=== PATIENT | female | born 1985 | race Caucasian/White ===

== ENCOUNTER 2016-10-31 10:22 | Inpatient (IN) | payer OTHER, SELFPAY ==
[~2016-10-31] VITALS: Ht 170.2 cm; Wt 85.7 kg
[2016-10-31] MEDS ORDERED: LIDOCAINE PF 1% 30ML(POUR BTL) INJ ONE (18:00)
[2016-10-31] MEDS ORDERED: MINERAL OIL 30 ML UDC ONE (18:00)
[2016-10-31] MEDS ORDERED: OXYTOCIN/NORMAL SALINE 1,000 ML IV SCH (18:19)
[2016-10-31] MEDS ORDERED: LR 1,000 ML IV SCH (18:19)
[2016-10-31] MEDS ORDERED: TERBUTALINE SULFATE 1 MG/ML VIAL SUBCUT ONE (18:30)
[2016-10-31] MEDS ORDERED: CEFAZOLIN 2 GM IVPB PREMIX 50 ML IV ONE (18:45)
[2016-10-31] MEDS ORDERED: CEFAZOLIN 1 GM IVPB PREMIX 50 ML IV ONE (18:45)
[2016-10-31 18:53] VITALS: BP_SYST 117
[2016-10-31 19:04] LABS: BASOPHILS # (AUTO) 0.1 K/uL (0.0-0.2); BASOPHILS % (AUTO) 0.7 % (0.0-2.0); EOSINOPHILS # (AUTO) 0.1 K/uL (0.0-0.4); EOSINOPHILS % (AUTO) 0.5 % (0.0-4.0); HEMATOCRIT 37.2 % (36-48); HEMOGLOBIN 12.8 g/dL (12.0-16.0); LYMPHOCYTES # (AUTO) 2.6 K/uL (1.0-5.5); LYMPHOCYTES % (AUTO) 20.7 % (20.5-51.5); MEAN CORPUSCULAR HEMOGLOBIN 31 pg (27-31); MEAN CORPUSCULAR HGB CONC 35 % (32-36); MEAN CORPUSCULAR VOLUME 89 fL (79.0-98.0); MONOCYTES % (AUTO) 8.1 % (1.7-9.3); PLATELET COUNT (AUTO) 263 K/uL (130-430); RED BLOOD CELL COUNT(AUTO) 4.19 MIL/uL (4.2-6.2); RED CELL DISTRIBUTION WIDTH 12.8 % (9.0-15.0); WHITE BLOOD COUNT (AUTO) 12.8 K/uL (4.8-10.8)
[2016-11-01] MEDS: NALBUPHINE HCL 10 MG/ML AMP IVP PRN ×2 (00:11→06:13)
[2016-11-01] MEDS ORDERED: CEFAZOLIN 1 GM IVPB PREMIX 50 ML IV SCH ×2 (06:00)
[2016-11-01] MEDS ORDERED: FENT2mCg/mL-ROPIVA0.2%/NS EPID 150 ML EP SCH (07:56)
[2016-11-01] MEDS ORDERED: FENT2mCg/mL-ROPIVA0.2%/NS EPID 150 ML EP ONE (07:56)
[2016-11-01] MEDS ORDERED: OXYTOCIN/NORMAL SALINE 1,000 ML IV ONE (13:38)
[2016-11-01] MEDS ORDERED: SENNOSIDES/DOCUSATE SODIUM 1 TAB TABLET(SENOKOT-S) PO PRN (13:45)
[2016-11-01] MEDS ORDERED: ACETAMINOPHEN 325 MG TABLET PO PRN (13:45)
[2016-11-01] MEDS ORDERED: ANUSOL 1 EA SUPP.RECT (PREPARATION H) RC PRN (13:45)
[2016-11-01] MEDS ORDERED: OXYCODONE/ACETAMINOPHEN 5-325 TABLET PO PRN ×2 (13:45)
[2016-11-01] MEDS ORDERED: DERMOPLAST SPRAY TP PRN (13:45)
[2016-11-01] MEDS ORDERED: LANOLIN 7 GM OINT. TP PRN (13:45)
[2016-11-01] MEDS ORDERED: METHYLERGONOVINE MALEATE 0.2 MG TABLET PO PRN (13:45)
[2016-11-01] MEDS ORDERED: HYDROCORTISONE 0.5%, 28.35 GM TOPICAL CREAM TP PRN (13:45)
[2016-11-01] MEDS ORDERED: GLYCERIN/WITCH HAZEL (TUCKS PADS) TP PRN (13:45)
[2016-11-01] MEDS: IBUPROFEN 600 MG TABLET PO SCH ×2 (17:46→23:40)
[2016-11-01] MEDS: DOCUSATE SODIUM 100 MG CAPSULE PO PRN (23:40)
[2016-11-02] MEDS: IBUPROFEN 600 MG TABLET PO SCH ×3 (06:07→18:00)
[2016-11-02 07:01] LABS: HEMATOCRIT 29.3 % (36-48); HEMOGLOBIN 9.9 g/dL (12.0-16.0)
[2016-11-02] MEDS: DOCUSATE SODIUM 100 MG CAPSULE PO PRN (18:00)
[2016-11-03] MEDS: IBUPROFEN 600 MG TABLET PO SCH ×3 (00:51→13:36)
[2016-11-03] MEDS ORDERED: DIPH-TET-PERTUS Vaccine 0.5 ML VIAL/Tdap (ADACEL) I.M. PRN (10:45)
[2016-11-03] MEDS: DOCUSATE SODIUM 100 MG CAPSULE PO PRN (13:35)
== END 2016-11-03 15:30 | disposition home or self-care (01) | DRG 775 ==
LOC: SPU 17:00
PROVIDERS: ADMIT Specialist; ATTEND Specialist
PROC: 10D07Z6 Extraction of Products of Conception, Vacuum, Via Natural or Artificial Opening (ICD-10-PCS; principal; 2016-10-31)
PROC: 3E0S3CZ (ICD-10-PCS; 2016-10-31)
PROC: 00HU33Z Insertion of Infusion Device into Spinal Canal, Percutaneous Approach (ICD-10-PCS; 2016-10-31)
PROC: 0W8NXZZ Division of Female Perineum, External Approach (ICD-10-PCS; 2016-10-31)
DX: O48.0 Post-term pregnancy (principal); O99.824 Streptococcus B carrier state complicating childbirth; O69.81X0 Labor and delivery complicated by cord around neck, without compression, not applicable or unspecified; Z37.0 Single live birth; Z3A.41 41 weeks gestation of pregnancy; Z88.0 Allergy status to penicillin
CPT/HCPCS: 36415; 81002-TC; 85018-TC; 85025; 86592; 86886; 86900; 86901; 90715; J0690; J2001; J2300; J2590; J3010; J7120